=== PATIENT | female | born 2000 | race Caucasian/White ===

== ENCOUNTER 2025-02-27 18:43 | Inpatient (IN) ==
[2025-02-27] MEDS ORDERED: CALCIUM CARBONATE 500 MG CHEWABLE TAB PO PRN (21:05)
[2025-02-27] MEDS ORDERED: LIDOCAINE 1% LOCAL 20 ML VIAL INFIL PRN (21:05)
[2025-02-27] MEDS ORDERED: ACETAMINOPHEN 325 MG TAB PO PRN (21:05)
[2025-02-27] MEDS ORDERED: PENICILLIN GK 6 MU in DEXTROSE 5% 250 ML IV STA (21:05)
[2025-02-27 21:58] LABS: Appearance Urine Clear (Clear); Glucose Urine UA Negative (Negative)
[2025-02-27 22:18] LABS: Protein Creatinine Ratio Urine 0.2 (0-0.2); Total Protein Urine Random 9.5 mg/dl (0-11.9)
[2025-02-27 22:34] LABS: Amphetamines+Metham, Urine Neg (Neg); MDMA (Ecstacy), Urine Neg (Neg); Marijuana, Urine Pos (Neg)
[2025-02-27 22:36] LABS: Hematocrit (blood only) 36.0 % (37.0-47.0); Hemoglobin 12.5 g/dl (12.0-16.0); Mean Corpuscular Hemoglobin 31.6 pg (25.0-34.0); Mean Corpuscular Volume 90.9 fL (80.0-100.0); Platelet Count 185 K/uL (130-400); RDW Standard Deviation 40.9 fL (36.4-46.3); Red Blood Count 3.96 M/uL (4.20-5.40); White Blood Count 9.35 K/ul (4.8-10.8)
--- NOTE | 2025-02-27 22:38 | History & Physical Report ---
Date of Service February 27, 2025 Assessment & Plan (1) Pre-eclampsia during in third trimester, antepartum: Plan: induction of labor with Cervidil for cervical ripening (2) Elevated liver enzymes: History of Present Illness Chief Complaint: induction of labor for pre-eclampsia Primary Care Provider: Katina Pinto MD 24 F [id number] admitted at 37.2 weeks after signing out AMA yesterday and returning to the office today. She was scheduled for IOL for this upcoming Sunday but she just showed up unannounced to L[facility]D [facility]. GBS is pending. Allergies Allergy/AdvReac Type Severity Reaction Status Date / Time dog dander Allergy Intermediate ITCHY Verified 02/27/25 19:08 EYES, SNEEZING Rabbit Allergy Intermediate ITCHY Verified 02/27/25 19:08 EYES, SNEEZING Home Medications Medication Instructions Recorded Confirmed Type albuterol sulfate 90 mcg/actuation 1 puff inhalation Q6H PRN Wheezing 10/27/18 02/27/25 History aerosol inhaler ferrous sulfate 325 mg (65 mg 325 mg PO BID 03/07/24 02/27/25 History iron) tablet (FeroSul) vit no.95-ferrous 1 tab PO DAILY 03/07/24 02/27/25 History fumarate 28 mg-folic acid 800 mcg tablet () aspirin 81 mg chewable tablet 81 mg PO DAILY 02/26/25 02/27/25 History Patient History Medical History Anxiety and depression Asthma Suicidal ideation Surgical History History of tonsillectomy History of adenoidectomy Social History Smoking Status: Current every day smoker Tobacco Type: E-cigarettes / Vaping Second Hand Exposure: No; Do You Dip or Chew Tobacco: No; Tobacco Cessation Education Requested by Patient: No Hx Alcohol Use: No Hx Substance Use: Yes Last Used Substance: Days (ago) Last Used Substance Other:: yesterday 02/26/25. Pt has medical card. 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 Beliefs That Will Affect Care: None marital status: Single Current Living Situation: Significant Other Current Living Situation Comment: Lives with FOB and daughther Other Information That Helps Us Care for You: No Feels Safe at Home: Yes Safety Concerns: Feels Safe At This Time Assistive Devices: None OB History x1 last year with PPH COLD MEAT CHEF History neg Review of Systems All systems reviewed & are unremarkable except as noted in HPI & below Physical Exam Constitutional: WD/WN, vitals as above Eyes: PERRL, conjunctivae normal, anicteric sclerae Respiratory: normal respiratory effort Cardiovascular: Rate/Rhythm: regular rate and regular rhythm Gastrointestinal (Abdomen): Inspection/Auscultation: abdomen normal to inspection Musculoskeletal: Extremities: extremities normal to inspection no edema Skin: no rashes, warm and dry Neurologic: patellar DTR's 2+ bilat, sensation intact Psychiatric: A+Ox3, euthymic affect Genitourinary: Manual OB Exam: + cervical dilation fingertip, + cervical effacement 50% and + station high OB Exam Monitor Tracing: + external FHT monitor used, + external uterine monitor used, + category I and + normal FHT variability Cervidil 10 mg placed vaginally Results & Data Vital Signs (Past 12 Hours) Vital Signs Temp Pulse Resp BP O2 Del Method 02/27/25 22:31 85 148/100 H 02/27/25 19:20 36.8 C 91 H 18 128/91 02/27/25 19:20 36.8 C 18 Room Air Code Status & VTE Plan VTE Prophylaxis Plan VTE Prophylaxis will be ordered: No Monitoring External Monitor Cat 1
[2025-02-27] MEDS: DINOPROSTONE 10 MG INSERT PV ONE (22:45)
[2025-02-27 22:57] LABS: Alanine Aminotransferase 440.0 U/L (7-52); Albumin Globulin Ratio 1.2 (0.9-2); Alkaline Phosphatase 211.0 U/L (34-104); Anion Gap 11.0 (3-11); Bilirubin,Total 1.1 mg/dl (0.2-1.0); Blood Urea Nitrogen 6.0 mg/dl (6-23); Calcium 8.8 mg/dl (8.6-10.3); Carbon Dioxide 19.0 mmol/L (21-32); Chloride 104.0 mmol/L (98-107); Creatinine Clr Calc Pharmacy 163.8 ml/min; Globulin 2.9 gm/dl (2.5-4.0); Glucose 71.0 mg/dl (70-99(Fasting)); Potassium 3.6 mmol/L (3.5-5.1); Sodium 134.0 mmol/L (136-145); Total Protein 6.4 gm/dl (6.0-8.3); Uric Acid 5.7 mg/dl (2.6-7.2)
[2025-02-28] MEDS ORDERED: PENICILLIN GK 3 MU in DEXTROSE 5% 100 ML IV PRN (00:05)
[2025-02-28] MEDS: LABETALOL HCL 100 MG TAB PO SCH (08:49)
--- NOTE | 2025-02-28 09:13 | Obstetrical Progress Note ---
Date of Service February 28, 2025 Assessment & Plan Admission and Anticipated Discharge Date Admission Date: February 27, 2025 Subjective Patient seen and examined. I know her from February 26 morning when she presented with severe range elevated blood pressures and elevated liver enzymes, recommended to stay for induction of labor for preeclampsia with severe features. She declined and signed out AMA. She went to office yesterday when repeat labs were done and her AST ALT were going up compared to the day before: Latest Ref Rng 02/27/2025 BUN 6 - 20 mg/dL 7 CREATININE 0.5 - 1.0 mg/dL 0.6 EGFR >=60 mL/min >90 SODIUM 135 - 146 mmol/L 136 POTASSIUM 3.5 - 5.1 mmol/L 4.3 CHLORIDE 98 - 107 mmol/L 100 CO2 22 - 32 mmol/L 19 (L) ANION GAP 7 - 15 mmol/L 17 (H) GLUCOSE 70 - 120 mg/dL 62 (L) Albumin 3.8 - 5.0 g/dL 3.8 AST 10 - 35 U/L 205 (H) Alkaline Phosphatase 35 - 130 U/L 218 (H) Bilirubin, Total <=1.2 mg/dL 0.9 CALCIUM 8.4 - 10.2 mg/dL 9.2 Protein 6.0 - 8.3 g/dL 6.2 ALT 10 - 35 U/L 352 (H) Color, Urine Light Yellow, Yellow Dark Yellow ! Clarity, Urine Clear Slightly Cloudy ! Glucose, Urine Negative mg/dL Negative Bilirubin, Urine Negative Moderate ! Ketone, Urine Negative mg/dL 80 ! Specific [place], Urine 1.003 - 1.030 1.025 Blood, Urine Negative Large ! pH, Urine 5.0, 5.5, 6.0, 6.5, 7.0, 7.5 units 6.5 Protein, Urine Negative mg/dL 100 ! Urobilinogen, Urine 0.2, 1.0 mg/dL 1.0 Nitrite, Urine Negative Negative Esterase, Urine Negative Trace ! WBC 4.00 - 10.80 K/uL 9.46 RBC 3.85 - 5.15 M/uL 4.07 HGB 12.0 - 15.3 g/dL 13.1 HCT 36.0 - 45.2 % 38.1 MCV 81.5 - 97.5 fL 93.6 MCH 27.0 - 34.0 pg 32.2 MCHC 32.0 - 36.0 g/dL 34.4 RDW 11.5 - 15.5 % 12.4 PLT 140 - 400 K/uL 190 MPV 6.6 - 11.1 fL 11.8 Protein/ Creatinine Ratio, Urine <150 mg/g 190 (H) Protein, Random Urine mg/dL 27 Creatinine, Random Urine mg/dL 142 She then presented to labor and delivery last night for induction of labor. She has no complaints. Denies headaches, change in her vision, nausea vomiting, epigastric or right upper quadrant pain. she denies swelling of extremities. Her blood pressures were stable last night but started to increase this morning. Her repeat liver enzymes were significantly elevated compared to before. She was admitted by Dr. Lewis who placed Cervidil for cervical ripening. She has a history of preeclampsia with severe features last February when she had her first baby. Her baby's birthday is tomorrow. She was on IV magnesium for seizure prophylaxis for her liver enzymes were at 200s, getting up. Repeat labs showed normal levels of ALT AST after delivery. I will collect her GBS 2 days ago and it is negative. She is aware of all the findings and we discussed the plan to start p.o. labetalol for her blood pressures, IV magnesium for seizure prophylaxis and AROM when able. Continue monitor closely, All questions were answered. Results & Data Vital Signs (Past 12 Hours) Vital Signs Temp Pulse Resp BP 02/28/25 08:49 83 143/99 H 02/28/25 07:55 74 154/97 H 02/28/25 07:40 74 154/94 H 02/28/25 07:23 36.6 C 20 02/28/25 07:23 69 139/101 H 02/28/25 05:43 76 117/75 02/28/25 03:06 72 130/84 02/28/25 02:50 16 02/28/25 02:50 36.5 C 16 02/28/25 00:44 71 123/80 02/27/25 23:45 82 128/86 02/27/25 22:31 36.8 C 85 18 148/100 H
[2025-02-28] MEDS ORDERED: ALBUTEROL HFA 8 GM INHALER INH PRN (09:21)
[2025-02-28 09:24] LABS: Hematocrit (blood only) 36.1 % (37.0-47.0); Hemoglobin 12.5 g/dl (12.0-16.0); Immature Granulocytes # (auto) 0.01 K/uL (0.01-0.20); Immature Granulocytes % (auto) 0.2 %; Mean Corpuscular Hemoglobin 31.6 pg (25.0-34.0); Mean Corpuscular Volume 91.4 fL (80.0-100.0); Platelet Count 166 K/uL (130-400); RDW Standard Deviation 41.2 fL (36.4-46.3); Red Blood Count 3.95 M/uL (4.20-5.40); White Blood Count 6.11 K/ul (4.8-10.8)
[2025-02-28] MEDS: PRENATAL VITAMIN 1 TAB PO SCH (09:36)
[2025-02-28 09:42] LABS: Alanine Aminotransferase 427.0 U/L (7-52); Albumin Globulin Ratio 1.5 (0.9-2); Alkaline Phosphatase 199.0 U/L (34-104); Anion Gap 8.0 (3-11); Bilirubin,Total 1.1 mg/dl (0.2-1.0); Blood Urea Nitrogen 6.0 mg/dl (6-23); Calcium 8.6 mg/dl (8.6-10.3); Carbon Dioxide 22.0 mmol/L (21-32); Chloride 105.0 mmol/L (98-107); Creatinine Clr Calc Pharmacy 160.7 ml/min; Globulin 2.4 gm/dl (2.5-4.0); Glucose 146.0 mg/dl (70-99(Fasting)); Potassium 3.5 mmol/L (3.5-5.1); Sodium 135.0 mmol/L (136-145); Total Protein 5.9 gm/dl (6.0-8.3)
[2025-02-28] MEDS: LACTATED RINGER'S 1,000 ML IV PRN (09:43)
[2025-02-28] MEDS: MAGNESIUM SULFATE / WTR 40 GM/1,000 ML BAG IV SCH (09:44)
[2025-02-28] MEDS: MAG SULFATE 4GM BOLUS FROM BAG IV ONE (09:45)
[2025-02-28] MEDS: MAG SULFATE 50% 1GM/2ML 10ML VIAL IV ONE (09:45)
[2025-02-28 09:53] LABS: INR 1.0 (0.9-1.1); Partial Thromboplastin Time 28 Seconds (21-31); Prothrombin Time 10.8 Seconds (9.0-12.0)
--- NOTE | 2025-02-28 10:25 | Obstetrical Progress Note ---
Date of Service February 28, 2025 Assessment & Plan Admission and Anticipated Discharge Date Admission Date: February 27, 2025 Subjective Magnesium bolus was given, patient got nauseous VSS Afebrile Labs are back and LFT's has not got more higher than last night VE: Cervidil is removed Cervix: 4cm/ 50%/-2 Continue to monitor closely Will start Oxytocin Lab Results 02/27/25 02/27/25 02/28/25 Range/Units 22:22 Unknown 09:09 WBC 9.35 6.11 (4.8-10.8) K/ul RBC 3.96 L 3.95 L (4.20-5.40) M/uL Hgb 12.5 12.5 (12.0-16.0) g/dl Hct 36.0 L 36.1 L (37.0-47.0) % MCV 90.9 91.4 (80.0-100.0) fL MCH 31.6 31.6 (25.0-34.0) pg MCHC 34.7 34.6 (32.0-36.0) g/dL RDW Std Deviation 40.9 41.2 (36.4-46.3) fL RDW Coeff of Tammie 12.5 12.6 (11.5-14.5) % Plt Count 185 166 (130-400) K/uL MPV 11.6 11.4 (9.4-12.4) fL Immature Gran % (Auto) 0.2 % Neut % (Auto) 74.6 % Lymph % (Auto) 20.5 % [place] % (Auto) 2.9 % Eos % (Auto) 1.1 % Baso % (Auto) 0.7 % Neut # (Auto) 4.56 (1.40-6.50) K/uL Lymph # (Auto) 1.25 (1.20-3.40) K/uL [place] # (Auto) 0.18 (0.11-0.59) K/uL Eos # (Auto) 0.07 (0.00-0.50) K/uL Baso # (Auto) 0.04 (0.00-0.20) K/uL Immature Gran # (Auto) 0.01 (0.01-0.20) K/uL PT 10.8 (9.0-12.0) Seconds INR 1.0 (0.9-1.1) APTT 28 (21-31) Seconds PTT Ratio 1.0 Sodium 134 L 135 L (136-145) mmol/L Potassium 3.6 3.5 (3.5-5.1) mmol/L Chloride 104 105 (98-107) mmol/L Carbon Dioxide 19 L 22 (21-32) mmol/L Anion Gap 11 8 (3-11) BUN 6 6 (6-23) mg/dl Creatinine 0.52 L 0.53 L (0.6-1.2) mg/dl Est Cr Clr Drug Dosing 163.8 160.7 ml/min eGFR 133.80 133.19 BUN/Creatinine Ratio 11.5 11.3 (10-20) Glucose 71 146 H (70-99(Fasting)) mg/dl Uric Acid 5.7 (2.6-7.2) mg/dl Calcium 8.8 8.6 (8.6-10.3) mg/dl Total Bilirubin 1.1 H D 1.1 H (0.2-1.0) mg/dl Direct Bilirubin 0.4 H (0-0.2) mg/dl AST 255 H 216 H (13-39) U/L ALT 440 H 427 H (7-52) U/L Alkaline Phosphatase 211 H 199 H (34-104) U/L Lactate Dehydrogenase 275 H (86-244) U/L Total Protein 6.4 5.9 L (6.0-8.3) gm/dl Albumin 3.5 3.5 (3.4-5.0) gm/dl Globulin 2.9 2.4 L (2.5-4.0) gm/dl Albumin/Globulin Ratio 1.2 1.5 (0.9-2) Urine Color Yellow Urine Appearance Clear (Clear) Urine pH 6.5 (4.5-7.5) Ur Specific [place] 1.007 (1.000-1.030) Urine Protein Negative (Negative) Urine Glucose (UA) Negative (Negative) Urine Ketones 3+ H (Negative) Urine Blood 1+ H (Negative) Urine Nitrite Negative (Negative) Urine Bilirubin Negative (Negative) Urine Urobilinogen Negative (Negative) Ur Leukocyte Esterase Trace H (Negative) Ur Random Creatinine 40.9 mg/dl U Random Total Protein 9.5 (0-11.9) mg/dl Protein/Creatinin Ratio 0.2 (0-0.2) Urine Opiates Screen Neg (Neg) Ur Methadone, Qual Neg (Neg) Urine Fentanyl Screen Neg (Neg) Urine Barbiturates Neg (Neg) Ur Phencyclidine (PCP) Neg (Neg) U Amphetamin/Meth Scrn Neg (Neg) MDMA (Ecstasy) Screen Neg (Neg) U Benzodiazepines Scrn Neg (Neg) Ur Cocaine Metabolite Neg (Neg) U Marijuana (THC) Screen Pos H (Neg) Treponema pallidum Ab Negative (Negative) Blood Type O Positive Antibody Screen NEGATIVE Results & Data Vital Signs (Past 12 Hours) Vital Signs Temp Pulse Resp BP 02/28/25 10:18 86 129/83 02/28/25 09:48 92 H 141/96 H 02/28/25 09:20 89 134/93 02/28/25 08:49 83 143/99 H 02/28/25 07:55 74 154/97 H 02/28/25 07:40 74 154/94 H 02/28/25 07:23 36.6 C 20 02/28/25 07:23 69 139/101 H 02/28/25 05:43 76 117/75 02/28/25 03:06 72 130/84 02/28/25 02:50 16 02/28/25 02:50 36.5 C 16 02/28/25 00:44 71 123/80 02/27/25 23:45 82 128/86 02/27/25 22:31 36.8 C 85 18 148/100 H
[2025-02-28] MEDS: OXYTOCIN 30 UNITS/NSS 30 UNITS/500 ML BAG IV PRN ×2 (10:27→15:54)
[2025-02-28 10:33] LABS: Fibrinogen 433 mg/dl (184-400)
[2025-02-28] MEDS ORDERED: fentANYL 2 MCG/ML BUPIVacaine 0.125%-NSS 100ML BAG EPI PRN (12:47)
[2025-02-28] MEDS ORDERED: NALOXONE HCL 0.4 MG/1 ML VIAL/CARP IV PRN (12:47)
[2025-02-28] MEDS ORDERED: SODIUM CHLORIDE 0.9% PF INJ 10 ML VIAL EPI PRN (12:47)
[2025-02-28] MEDS ORDERED: diphenhydrAMINE 50 MG/ML VIAL IV PRN (12:47)
[2025-02-28] MEDS ORDERED: LIDOCAINE 2% MPF LOCAL 5 ML VIAL EPI PRN (12:47)
[2025-02-28] MEDS ORDERED: ROPIVACAINE 0.5% PF 5 MG/ML 20 ML VIAL EPI PRN (12:47)
[2025-02-28] MEDS ORDERED: NALOXONE HCL 1 MG in SODIUM CHLORIDE 0.9% 1,000 ML IV PRN (12:47)
[2025-02-28] MEDS ORDERED: BUPIVACAINE 0.25% PF 30 ML VIAL EPI PRN (12:47)
[2025-02-28] MEDS ORDERED: NALBUPHINE HCL INJ 10 MG/ML AMP IV PRN (12:47)
--- NOTE | 2025-02-28 12:47 | Anesthesiology Consultation ---
Date of Service February 28, 2025 Assessment & Plan Chart Review Chart Review: Acceptable Risk for Labor Epidural Consults Requested none History Height/Weight Height: 5 ft 4 in Weight: 72.121 kg Allergies Allergy/AdvReac Type Severity Reaction Status Date / Time dog dander Allergy Intermediate ITCHY Verified 02/27/25 19:08 EYES, SNEEZING Rabbit Allergy Intermediate ITCHY Verified 02/27/25 19:08 EYES, SNEEZING Medications Home Medications Medication Instructions Recorded Confirmed Last Taken albuterol sulfate 90 mcg/actuation 1 puff inhalation Q6H PRN Wheezing 10/27/18 02/27/25 02/27/25 aerosol inhaler ferrous sulfate 325 mg (65 mg 325 mg PO BID 03/07/24 02/27/25 02/27/25 iron) tablet (FeroSul) vit no.95-ferrous 1 tab PO DAILY 03/07/24 02/27/25 02/27/25 fumarate 28 mg-folic acid 800 mcg tablet () aspirin 81 mg chewable tablet 81 mg PO DAILY 02/26/25 02/27/25 02/27/25 Active Medications Generic Name Dose Route Start Last Admin Trade Name Freq PRN Reason Stop Dose Admin Lactated Ringer's 1,000 mls @ 125 mls/hr 02/27/25 21:05 02/28/25 12:28 Lr IV 03/01/25 21:04 999 mls/hr .Q8H PRN Infusion L&D Protocol Protocol Magnesium Sulfate 40 gm in 1,000 mls @ 50 mls/hr 02/28/25 09:15 02/28/25 10:17 Magnesium Sulfate / Wtr IV 03/30/25 09:14 50 mls/hr .Q20H MICHAEL Infusion Oxytocin 30 units in 500 mls @ 4 mls/hr 02/28/25 09:15 02/28/25 10:57 Pitocin 30 Units/Nss IV 03/02/25 09:14 0.24 units/hr .Q24H PRN 4 mls/hr Labor Induction/Augmentation Titration Protocol 0.24 UNITS/HR Labetalol HCl 100 mg 02/28/25 08:40 02/28/25 08:49 Labetalol Hcl 100 Mg Tab PO 03/30/25 08:39 100 mg Q8 MICHAEL Administration Prenat Multivit/Staffing Clerk/Iron/Folic Ac 1 tab 02/28/25 09:30 02/28/25 09:36 Vitamin 1 Tab PO 03/30/25 09:29 Not Given DAILY MICHAEL Past Medical History Medical History Anxiety and depression Asthma Suicidal ideation Past Surgical History Surgical History History of tonsillectomy History of adenoidectomy Social History Smoking Status: Current every day smoker Do You Dip or Chew Tobacco: No Hx Alcohol Use: No Hx Substance Use: Yes substance use type: marijuana Substance Use Type Other:: used yesterday- medical card Last Used Substance: Days (ago) Last Used Substance Other:: yesterday 02/26/25. Pt has medical card. Copy placed in chart Physical Exam Vital Signs Last Vital Signs Temp 36.6 C 02/28/25 10:30 Pulse 71 02/28/25 12:45 Resp 18 02/28/25 11:30 BP 150/97 H 02/28/25 11:50 Pulse Ox 100 02/28/25 12:45 O2 Del Method Room Air 02/27/25 19:20 Testing Laboratory Results 02/28/25 09:09 02/28/25 09:09 PT 10.8 Seconds (9.0-12.0) 02/28/25 09:09 INR 1.0 (0.9-1.1) 02/28/25 09:09 APTT 28 Seconds (21-31) 02/28/25 09:09 Urine Color Yellow 02/27/25 Unknown Urine Appearance Clear (Clear) 02/27/25 Unknown Urine pH 6.5 (4.5-7.5) 02/27/25 Unknown Ur Specific [place] 1.007 (1.000-1.030) 02/27/25 Unknown Urine Protein Negative (Negative) 02/27/25 Unknown Urine Glucose (UA) Negative (Negative) 02/27/25 Unknown Urine Ketones 3+ (Negative) H 02/27/25 Unknown Urine Nitrite Negative (Negative) 02/27/25 Unknown Ur Leukocyte Esterase Trace (Negative) H 02/27/25 Unknown Blood Type O Positive 02/27/25 22:22 Antibody Screen NEGATIVE 02/27/25 22:22
[2025-02-28] MEDS: fentANYL 2 MCG/ML BUPIVacaine 0.125%-NSS 100ML BAG ONE (13:07)
[2025-02-28] MEDS: LIDOCAINE 2%/EPINEPHRINE 1:200,000 20 ML PF ONE (13:12)
[2025-02-28] MEDS: SODIUM CHLORIDE 0.9% PF INJ 10 ML VIAL ONE (13:13)
[2025-02-28] MEDS: BUPIVACAINE 0.25% PF 30 ML VIAL ONE (13:13)
--- NOTE | 2025-02-28 13:43 | Obstetrical Progress Note ---
Date of Service February 28, 2025 Assessment & Plan Admission and Anticipated Discharge Date Admission Date: February 27, 2025 Subjective Patient received epidural, comfortable now, Denies headaches, change in her vision, nausea vomiting, chest pain, shortness of breath, dizziness nor sleepiness with IV magnesium, Vaginal exam 5 cm dilated, 70% effaced, -2, with bulging bag, AROM and, abundant clear fluid was obtained, heart rate category 1, repeat labs with slightly improved ALT and AST, still normal platelets and creatinine, coags within normal limits. Continue to monitor closely. Lab Results 02/27/25 02/27/25 02/28/25 Range/Units 22:22 Unknown 09:09 WBC 9.35 6.11 (4.8-10.8) K/ul RBC 3.96 L 3.95 L (4.20-5.40) M/uL Hgb 12.5 12.5 (12.0-16.0) g/dl Hct 36.0 L 36.1 L (37.0-47.0) % MCV 90.9 91.4 (80.0-100.0) fL MCH 31.6 31.6 (25.0-34.0) pg MCHC 34.7 34.6 (32.0-36.0) g/dL RDW Std Deviation 40.9 41.2 (36.4-46.3) fL RDW Coeff of Tammie 12.5 12.6 (11.5-14.5) % Plt Count 185 166 (130-400) K/uL MPV 11.6 11.4 (9.4-12.4) fL Immature Gran % (Auto) 0.2 % Neut % (Auto) 74.6 % Lymph % (Auto) 20.5 % [place] % (Auto) 2.9 % Eos % (Auto) 1.1 % Baso % (Auto) 0.7 % Neut # (Auto) 4.56 (1.40-6.50) K/uL Lymph # (Auto) 1.25 (1.20-3.40) K/uL [place] # (Auto) 0.18 (0.11-0.59) K/uL Eos # (Auto) 0.07 (0.00-0.50) K/uL Baso # (Auto) 0.04 (0.00-0.20) K/uL Immature Gran # (Auto) 0.01 (0.01-0.20) K/uL PT 10.8 (9.0-12.0) Seconds INR 1.0 (0.9-1.1) APTT 28 (21-31) Seconds PTT Ratio 1.0 Fibrinogen 433 H (184-400) mg/dl Sodium 134 L 135 L (136-145) mmol/L Potassium 3.6 3.5 (3.5-5.1) mmol/L Chloride 104 105 (98-107) mmol/L Carbon Dioxide 19 L 22 (21-32) mmol/L Anion Gap 11 8 (3-11) BUN 6 6 (6-23) mg/dl Creatinine 0.52 L 0.53 L (0.6-1.2) mg/dl Est Cr Clr Drug Dosing 163.8 160.7 ml/min eGFR 133.80 133.19 BUN/Creatinine Ratio 11.5 11.3 (10-20) Glucose 71 146 H (70-99(Fasting)) mg/dl Uric Acid 5.7 (2.6-7.2) mg/dl Calcium 8.8 8.6 (8.6-10.3) mg/dl Total Bilirubin 1.1 H D 1.1 H (0.2-1.0) mg/dl Direct Bilirubin 0.4 H (0-0.2) mg/dl AST 255 H 216 H (13-39) U/L ALT 440 H 427 H (7-52) U/L Alkaline Phosphatase 211 H 199 H (34-104) U/L Lactate Dehydrogenase 275 H (86-244) U/L Total Protein 6.4 5.9 L (6.0-8.3) gm/dl Albumin 3.5 3.5 (3.4-5.0) gm/dl Globulin 2.9 2.4 L (2.5-4.0) gm/dl Albumin/Globulin Ratio 1.2 1.5 (0.9-2) Urine Color Yellow Urine Appearance Clear (Clear) Urine pH 6.5 (4.5-7.5) Ur Specific [place] 1.007 (1.000-1.030) Urine Protein Negative (Negative) Urine Glucose (UA) Negative (Negative) Urine Ketones 3+ H (Negative) Urine Blood 1+ H (Negative) Urine Nitrite Negative (Negative) Urine Bilirubin Negative (Negative) Urine Urobilinogen Negative (Negative) Ur Leukocyte Esterase Trace H (Negative) Ur Random Creatinine 40.9 mg/dl U Random Total Protein 9.5 (0-11.9) mg/dl Protein/Creatinin Ratio 0.2 (0-0.2) Urine Opiates Screen Neg (Neg) Ur Methadone, Qual Neg (Neg) Urine Fentanyl Screen Neg (Neg) Urine Barbiturates Neg (Neg) Ur Phencyclidine (PCP) Neg (Neg) U Amphetamin/Meth Scrn Neg (Neg) MDMA (Ecstasy) Screen Neg (Neg) U Benzodiazepines Scrn Neg (Neg) Ur Cocaine Metabolite Neg (Neg) U Marijuana (THC) Screen Pos H (Neg) Treponema pallidum Ab Negative (Negative) Blood Type O Positive Antibody Screen NEGATIVE Results & Data Vital Signs (Past 12 Hours) Vital Signs Temp Pulse Resp BP Pulse Ox 02/28/25 13:35 91 H 100 02/28/25 13:34 97 H 139/93 02/28/25 13:31 79 162/105 H 02/28/25 13:30 77 99 02/28/25 13:25 76 100 02/28/25 13:24 79 141/90 H 02/28/25 13:22 85 178/117 H 02/28/25 13:20 88 97 02/28/25 13:19 81 138/101 H 02/28/25 13:17 75 146/102 H 02/28/25 13:15 77 141/98 H 100 02/28/25 13:13 77 143/95 H 02/28/25 13:11 80 150/103 H 02/28/25 13:10 36.6 C 83 20 100 02/28/25 13:09 75 157/106 H 02/28/25 13:08 74 20 155/99 H 02/28/25 13:05 82 139/87 100 02/28/25 13:00 79 100 02/28/25 12:55 78 100 02/28/25 12:50 75 100 02/28/25 12:45 71 100 02/28/25 12:40 75 100 02/28/25 12:35 81 100 02/28/25 12:30 20 02/28/25 12:30 74 100 02/28/25 11:50 81 150/97 H 02/28/25 11:30 18 02/28/25 11:30 18 02/28/25 11:19 82 151/95 H 02/28/25 10:50 91 H 165/104 H 02/28/25 10:30 20 02/28/25 10:30 36.6 C 20 02/28/25 10:18 86 129/83 02/28/25 09:48 92 H 141/96 H 02/28/25 09:20 89 134/93 02/28/25 08:49 83 143/99 H 02/28/25 07:55 74 154/97 H 02/28/25 07:40 74 154/94 H 02/28/25 07:23 36.6 C 20 02/28/25 07:23 69 139/101 H 02/28/25 05:43 76 117/75 02/28/25 03:06 72 130/84 02/28/25 02:50 16 02/28/25 02:50 36.5 C 16
[2025-02-28] MEDS: FAMOTIDINE 20 MG TAB PO SCH (14:20)
[2025-02-28] MEDS: SODIUM CHLORIDE 0.9% PF INJ 10 ML VIAL EPI STA (15:28)
[2025-02-28] MEDS: BUPIVACAINE 0.25% PF 30 ML VIAL EPI STA (15:28)
[2025-02-28] MEDS: LIDOCAINE 2%/EPINEPHRINE 1:200,000 20 ML PF EPI STA (15:28)
[2025-02-28] MEDS ORDERED: HYDROCORTISONE ACETATE 25 MG SUPP PR PRN (15:35)
[2025-02-28] MEDS ORDERED: ACETAMINOPHEN 325 MG TAB PO PRN (15:35)
[2025-02-28] MEDS ORDERED: OXYTOCIN 30 UNITS/NSS 30 UNITS/500 ML BAG IV PRN (15:35)
--- NOTE | 2025-02-28 15:47 | Delivery Summary ---
Vaginal Delivery Summary Date of Service February 28, 2025 Vaginal Delivery Summary Patient was found to be fully dilated and desires to push. She pushed for about 10 min and delivered the head and then shoulders with minimal traction at 15:17. The baby was handed off to the mother. The cord was clampedx2 and cut at 1 minute. The vagina and perineum were checked and found to have a small 1st degree perineal laceration. Rectal exam was done and noted good sphincter tone. Cytotec was placed for h/o hemorrhage. It was repaired with 2/0 vicryl and skin on subcuticular fashion. The placenta was delivered spontaneously as intact and complete. The uterus was explored and found to be empty. QBL 224 was ml. The fundus was firm The baby was a viable female , Apgars 8/9, the weight is pending The mother and the baby tolerated the procedure well. No complications happened and I was present during whole procedure.
[2025-02-28] MEDS: DIPHTHER/TETAN/PERTUS Vaccine (Tdap, Adol/Adult) 0.5mL IM ONE (16:02)
[2025-02-28] MEDS: IBUPROFEN 600 MG TAB PO PRN (17:26)
--- NOTE | 2025-02-28 17:32 | Anesthesia Procedure Note ---
Date of Service February 28, 2025 Anesthesia Post Epidural Note Vital Signs Vital Signs: Temp Pulse Resp BP Pulse Ox O2 Del Method 36.6 C 85 20 152/101 H 86 L Room Air 02/28/25 13:10 02/28/25 17:29 02/28/25 16:35 02/28/25 17:19 02/28/25 17:29 02/27/25 19:20 Notes Mental Status: alert / awake / arousable and participated in evaluation Nausea / Vomiting: adequately controlled Pain: adequately controlled Airway Patency, RR, SpO2: stable & adequate BP & HR: stable & adequate Hydration State: stable & adequate Neuraxial Anesthesia: was administered and sensory block is resolving Anesthetic Complications: no major complications apparent and Pt Satisfied with anesthetic care Epidural: Removed without complications and With tip intact
[2025-02-28] MEDS: NIFEdipine EXTENDED REL 30 MG TABCR PO SCH (19:03)
[2025-02-28] MEDS: BENZOCAINE 20% SPRY 85 APPLN/85 GM CAN EXT PRN (19:44)
[2025-02-28] MEDS ORDERED: SODIUM CHLORIDE 0.9% 100 ML IV PRN (20:04)
[2025-02-28] MEDS: BUTORPHANOL TARTRATE 1 MG/ML VIAL IV ONE (20:11)
[2025-02-28 20:33] LABS: Hematocrit (blood only) 30.8 % (37.0-47.0); Hemoglobin 10.8 g/dl (12.0-16.0); Immature Granulocytes # (auto) 0.04 K/uL (0.01-0.20); Immature Granulocytes % (auto) 0.3 %; Mean Corpuscular Hemoglobin 31.6 pg (25.0-34.0); Mean Corpuscular Volume 90.1 fL (80.0-100.0); Platelet Count 177 K/uL (130-400); RDW Standard Deviation 40.5 fL (36.4-46.3); Red Blood Count 3.42 M/uL (4.20-5.40); White Blood Count 11.52 K/ul (4.8-10.8)
[2025-02-28] MEDS: OXYTOCIN 20 UNITS/LR 1,002 ML IV SCH (20:33)
[2025-02-28 20:51] LABS: Alanine Aminotransferase 460.0 U/L (7-52); Albumin Globulin Ratio 1.2 (0.9-2); Alkaline Phosphatase 169.0 U/L (34-104); Anion Gap 8.0 (3-11); Bilirubin,Total 0.9 mg/dl (0.2-1.0); Blood Urea Nitrogen 4.0 mg/dl (6-23); Calcium 7.0 mg/dl (8.6-10.3); Carbon Dioxide 19.0 mmol/L (21-32); Chloride 104.0 mmol/L (98-107); Creatinine Clr Calc Pharmacy 198.1 ml/min; Globulin 2.4 gm/dl (2.5-4.0); Glucose 125.0 mg/dl (70-99(Fasting)); Potassium 3.6 mmol/L (3.5-5.1); Sodium 131.0 mmol/L (136-145); Total Protein 5.3 gm/dl (6.0-8.3)
--- NOTE | 2025-02-28 20:52 | Obstetrical Progress Note ---
Date of Service February 28, 2025 Assessment & Plan Admission and Anticipated Discharge Date Admission Date: February 27, 2025 Subjective I was called that patient passed large clots, QBL more than 500 meeting criteria for hemorrhage. Vital signs stable afebrile, Patient feels well no complaints other than being sleepy and mildly dizzy from magnesium sulfate. No chest pain shortness of breath, headaches change in her vision, abdominal pain. Third bag of IV oxytocin running at 999 rate. Patient was under regular bed it was switched to an labor bed for exam with speculum. Procedure: The patient was placed in dorsolithotomy position, prepared and draped in usual sterile fashion. Manual exam was done by myself fundus was firm, small about 50 mL of clot was removed from uterus. Speculum was placed in the patient's vagina cervix was visualized and held with ring forceps. There was oozing spots on the anterior lip and at 3:00 positions. Those were repaired with 2-0 Vicryl with figure of 8 stitches. And then posterior leaf was visualized to be using as well. It was also repaired with 2-0 Vicryl with [id number] stitches. It was hemostatic uterus was firm all the time. Total QBL was 1190 including blood loss during delivery and . Until now. Attempt Estela device but uterus was firm unable to place the Lana into the uterine cavity. It was removed. Patient was given IV Stadol for pain control. She tolerated the procedure well. Stat labs were done 2 units of packed red blood cells were typed and crossed ready to be given if needed. Repeat H&H is stable and other labs are pending. Continue to monitor closely. Results & Data Vital Signs (Past 12 Hours) Vital Signs Temp Pulse Resp BP Pulse Ox O2 Del Method 02/28/25 20:45 99 02/28/25 20:45 86 02/28/25 20:40 99 02/28/25 20:40 84 02/28/25 20:35 98 02/28/25 20:35 75 02/28/25 20:34 75 02/28/25 20:34 136/95 02/28/25 20:30 98 02/28/25 20:30 81 02/28/25 20:25 99 02/28/25 20:25 83 02/28/25 20:22 88 02/28/25 20:22 139/100 02/28/25 20:20 98 02/28/25 20:20 84 02/28/25 20:15 100 02/28/25 20:15 101 H 02/28/25 20:10 100 02/28/25 20:10 90 02/28/25 20:05 100 02/28/25 20:05 98 H 02/28/25 20:05 102 H 02/28/25 20:05 140/90 02/28/25 19:28 90 02/28/25 19:28 142/99 H 02/28/25 19:11 18 02/28/25 19:11 18 02/28/25 19:11 Room Air 02/28/25 18:30 20 02/28/25 18:28 87 132/90 02/28/25 17:49 85 140/90 02/28/25 17:35 20 02/28/25 17:34 81 164/103 H 02/28/25 17:29 85 86 L 02/28/25 17:25 77 99 02/28/25 17:21 74 85 L 02/28/25 17:20 72 99 02/28/25 17:19 69 152/101 H 02/28/25 17:15 74 98 02/28/25 17:10 81 98 02/28/25 17:05 20 02/28/25 17:05 83 98 02/28/25 17:04 81 131/87 02/28/25 17:00 36.7 C 02/28/25 17:00 88 95 02/28/25 16:55 81 99 02/28/25 16:50 82 98 02/28/25 16:49 72 138/86 02/28/25 16:45 75 96 02/28/25 16:40 82 98 02/28/25 16:35 20 02/28/25 16:35 86 91 02/28/25 16:34 77 154/82 H 02/28/25 16:30 79 99 02/28/25 16:25 80 94 02/28/25 16:20 20 02/28/25 16:20 77 100 02/28/25 16:19 80 153/72 H 02/28/25 16:15 79 100 02/28/25 16:10 75 99 02/28/25 16:08 20 02/28/25 16:07 87 91 02/28/25 16:05 85 100 02/28/25 16:04 76 155/103 H 02/28/25 16:00 85 100 02/28/25 15:55 86 100 02/28/25 15:50 18 02/28/25 15:50 99 02/28/25 15:50 82 02/28/25 15:50 81 141/100 H 02/28/25 15:45 94 H 99 02/28/25 15:40 77 99 02/28/25 15:35 20 02/28/25 15:35 81 100 02/28/25 15:34 76 125/79 02/28/25 15:30 81 100 02/28/25 15:27 76 143/76 H 02/28/25 15:25 83 99 02/28/25 15:20 84 99 02/28/25 15:17 88 92 02/28/25 15:15 89 100 02/28/25 15:10 92 H 100 02/28/25 15:06 83 193/111 H 02/28/25 15:05 94 H 100 02/28/25 15:00 85 100 02/28/25 14:55 77 100 02/28/25 14:50 99 02/28/25 14:50 77 02/28/25 14:50 76 133/80 02/28/25 14:45 85 100 02/28/25 14:40 75 100 02/28/25 14:35 75 100 02/28/25 14:34 75 122/76 02/28/25 14:30 20 02/28/25 14:30 78 100 02/28/25 14:25 84 99 02/28/25 14:20 99 H 142/97 H 100 02/28/25 14:15 82 100 02/28/25 14:10 83 100 02/28/25 14:05 100 02/28/25 14:05 85 02/28/25 14:05 75 136/91 02/28/25 14:01 78 138/92 02/28/25 14:00 83 18 99 02/28/25 13:55 85 100 02/28/25 13:50 82 100 02/28/25 13:45 90 100 02/28/25 13:40 98 H 100 02/28/25 13:35 91 H 100 02/28/25 13:34 97 H 139/93 02/28/25 13:31 79 162/105 H 02/28/25 13:30 20 02/28/25 13:30 77 99 02/28/25 13:25 76 100 02/28/25 13:24 79 141/90 H 02/28/25 13:22 85 178/117 H 02/28/25 13:20 88 18 97 02/28/25 13:19 81 138/101 H 02/28/25 13:17 75 146/102 H 02/28/25 13:15 77 141/98 H 100 02/28/25 13:13 77 143/95 H 02/28/25 13:11 80 150/103 H 02/28/25 13:10 36.6 C 83 20 100 02/28/25 13:09 75 157/106 H 02/28/25 13:08 74 20 155/99 H 02/28/25 13:05 82 139/87 100 02/28/25 13:00 79 100 02/28/25 12:55 78 100 02/28/25 12:50 75 100 02/28/25 12:45 71 100 02/28/25 12:40 75 100 02/28/25 12:35 81 100 02/28/25 12:30 20 02/28/25 12:30 74 100 02/28/25 11:50 81 150/97 H 02/28/25 11:30 18 02/28/25 11:30 18 02/28/25 11:19 82 151/95 H 02/28/25 10:50 91 H 165/104 H 02/28/25 10:30 20 02/28/25 10:30 36.6 C 20 02/28/25 10:18 86 129/83 02/28/25 09:48 92 H 141/96 H 02/28/25 09:20 89 134/93 02/28/25 08:49 83 143/99 H
[2025-02-28 21:02] LABS: Fibrinogen 449 mg/dl (184-400)
[2025-02-28 21:04] LABS: INR 0.9 (0.9-1.1); Partial Thromboplastin Time 29 Seconds (21-31); Prothrombin Time 10.1 Seconds (9.0-12.0)
[2025-02-28] MEDS: BUTORPHANOL TARTRATE 1 MG/ML VIAL ONE (21:08)
[2025-02-28] MEDS: ONDANSETRON INJ 2 MG/ML 2 ML VIAL IV PRN (21:33)
[2025-02-28] MEDS: DOCUSATE SODIUM 100 MG CAP PO SCH (21:55)
[2025-02-28] MEDS: OXYTOCIN 20 UNITS/1002ML LR IV ONE (22:11)
[2025-02-28] MEDS ORDERED: Nursing to Pharmacy Communication SCH (23:30)
[2025-03-01 06:55] LABS: Hematocrit (blood only) 28.4 % (37.0-47.0); Hemoglobin 9.9 g/dl (12.0-16.0); Mean Corpuscular Hemoglobin 31.5 pg (25.0-34.0); Mean Corpuscular Volume 90.4 fL (80.0-100.0); Platelet Count 153 K/uL (130-400); RDW Standard Deviation 40.3 fL (36.4-46.3); Red Blood Count 3.14 M/uL (4.20-5.40); White Blood Count 9.91 K/ul (4.8-10.8)
[2025-03-01 07:19] LABS: Alanine Aminotransferase 412.0 U/L (7-52); Albumin Globulin Ratio 1.5 (0.9-2); Alkaline Phosphatase 156.0 U/L (34-104); Anion Gap 4.0 (3-11); Bilirubin,Total 0.9 mg/dl (0.2-1.0); Blood Urea Nitrogen 3.0 mg/dl (6-23); Calcium 6.9 mg/dl (8.6-10.3); Carbon Dioxide 24.0 mmol/L (21-32); Chloride 103.0 mmol/L (98-107); Creatinine Clr Calc Pharmacy 193.6 ml/min; Globulin 1.9 gm/dl (2.5-4.0); Glucose 86.0 mg/dl (70-99(Fasting)); Potassium 4.0 mmol/L (3.5-5.1); Sodium 131.0 mmol/L (136-145); Total Protein 4.8 gm/dl (6.0-8.3)
[2025-03-01] MEDS ORDERED: IRON SUCROSE 300 MG in SODIUM CHLORIDE 0.9% 250 ML IV ONE (07:29)
--- NOTE | 2025-03-01 08:11 | Obstetrical Progress Note ---
Date of Service March 01, 2025 Assessment & Plan Admission and Anticipated Discharge Date Admission Date: February 27, 2025 Subjective Patient is seen and examined. She feels well, no complaints. Ambulating without dizziness Voiding without difficulty Tolerating regular diet with out N&V Bleeding is minimal No DUGAN/ Change in vision/ fever/ chills/ CP/ SOB/ N&V/ Leg pain Breast and bottle feeding without problems Vital Signs Height Weight Body Mass Index Blood Pressure Temperature Pulse Rate Respiratory Rate 5 ft 4 in 72.121 kg 27.3 135/90 36.7 C 81 20 02/28/25 13:12 02/28/25 13:12 02/27/25 19:20 03/01/25 08:03 03/01/25 07:10 03/01/25 08:05 03/01/25 07:10 Pulse Oximetry 99 03/01/25 08:05 03/01/25 02/28/25 02/28/25 Range/Units 06:19 20:17 09:09 WBC 9.91 11.52 H 6.11 (4.8-10.8) K/ul RBC 3.14 L 3.42 L 3.95 L (4.20-5.40) M/uL Hgb 9.9 L 10.8 L 12.5 (12.0-16.0) g/dl Hct 28.4 L 30.8 L 36.1 L (37.0-47.0) % MCV 90.4 90.1 91.4 (80.0-100.0) fL MCH 31.5 31.6 31.6 (25.0-34.0) pg MCHC 34.9 35.1 34.6 (32.0-36.0) g/dL RDW Std Deviation 40.3 40.5 41.2 (36.4-46.3) fL RDW Coeff of Tammie 12.4 12.4 12.6 (11.5-14.5) % Plt Count 153 177 166 (130-400) K/uL MPV 11.5 11.0 11.4 (9.4-12.4) fL Immature Gran % (Auto) 0.3 0.2 % Neut % (Auto) 82.7 74.6 % Lymph % (Auto) 11.1 20.5 % [place] % (Auto) 5.3 2.9 % Eos % (Auto) 0.3 1.1 % Baso % (Auto) 0.3 0.7 % Neut # (Auto) 9.51 H 4.56 (1.40-6.50) K/uL Lymph # (Auto) 1.28 1.25 (1.20-3.40) K/uL [place] # (Auto) 0.61 H 0.18 (0.11-0.59) K/uL Eos # (Auto) 0.04 0.07 (0.00-0.50) K/uL Baso # (Auto) 0.04 0.04 (0.00-0.20) K/uL Immature Gran # (Auto) 0.04 0.01 (0.01-0.20) K/uL PT 10.1 10.8 (9.0-12.0) Seconds INR 0.9 1.0 (0.9-1.1) APTT 29 28 (21-31) Seconds PTT Ratio 1.1 1.0 Fibrinogen 449 H 433 H (184-400) mg/dl Sodium 131 L 131 L 135 L (136-145) mmol/L Potassium 4.0 3.6 3.5 (3.5-5.1) mmol/L Chloride 103 104 105 (98-107) mmol/L Carbon Dioxide 24 19 L 22 (21-32) mmol/L Anion Gap 4 8 8 (3-11) BUN 3 L 4 L 6 (6-23) mg/dl Creatinine 0.44 L 0.43 L 0.53 L (0.6-1.2) mg/dl Est Cr Clr Drug Dosing 193.6 198.1 160.7 ml/min eGFR 139.30 140.07 133.19 BUN/Creatinine Ratio 6.8 L 9.3 L 11.3 (10-20) Glucose 86 125 H 146 H (70-99(Fasting)) mg/dl Calcium 6.9 L 7.0 L 8.6 (8.6-10.3) mg/dl Magnesium (Sulf Ther) Pending Total Bilirubin 0.9 0.9 1.1 H (0.2-1.0) mg/dl AST 207 H 232 H 216 H (13-39) U/L ALT 412 H 460 H 427 H (7-52) U/L Alkaline Phosphatase 156 H 169 H 199 H (34-104) U/L Total Protein 4.8 L 5.3 L 5.9 L (6.0-8.3) gm/dl Albumin 2.9 L 2.9 L 3.5 (3.4-5.0) gm/dl Globulin 1.9 L 2.4 L 2.4 L (2.5-4.0) gm/dl Albumin/Globulin Ratio 1.5 1.2 1.5 (0.9-2) PE: General: Alert, orientedx3, NAD Abd: soft, NT, fundus firm, below Umbilicus Perineum intact, Lochia rubra minimal Ext; NT, no edema AP: 24 yo s/p , IOL for preeclampsia with severe features, elevated AST, ALT, s/p pp hemorrhage controlled with medications and cervical repair, on IV magnesium, ppd# 1 VSS Afebrile doing well BP's under control wit Labetalol and Procardia XL, both were held this morning H&H stable, UOP good, No s/s of magnesium toxicity Low Calcium replace with Calcium Gluconate IV IV iron Stop Magnesium after 24 hours Continue to monitor closely All questions were answered Results & Data Vital Signs (Past 12 Hours) Vital Signs Temp Pulse Resp BP Pulse Ox 03/01/25 08:03 86 135/90 03/01/25 08:00 83 97 03/01/25 07:55 79 97 03/01/25 07:50 84 99 03/01/25 07:45 86 99 03/01/25 07:40 83 98 03/01/25 07:35 83 97 03/01/25 07:30 102 H 100 03/01/25 07:25 84 98 03/01/25 07:20 80 99 03/01/25 07:15 85 96 03/01/25 07:10 36.7 C 20 03/01/25 07:10 20 03/01/25 07:10 88 100 03/01/25 07:05 91 H 99 03/01/25 07:03 86 129/87 03/01/25 07:00 84 98 03/01/25 06:55 91 H 99 03/01/25 06:50 86 99 03/01/25 06:45 88 99 03/01/25 06:40 95 H 99 03/01/25 06:35 87 99 03/01/25 06:30 94 H 96 03/01/25 06:25 92 H 99 03/01/25 06:20 88 99 03/01/25 06:15 86 98 03/01/25 06:10 84 99 03/01/25 06:05 16 03/01/25 06:05 81 99 03/01/25 06:03 81 117/82 03/01/25 06:00 80 99 03/01/25 05:55 80 100 03/01/25 05:50 87 100 03/01/25 05:45 81 100 03/01/25 05:40 74 99 03/01/25 05:35 71 100 03/01/25 05:30 77 100 03/01/25 05:25 77 100 03/01/25 05:20 78 99 03/01/25 05:15 78 100 03/01/25 05:10 16 03/01/25 05:10 83 99 03/01/25 05:05 84 99 03/01/25 05:03 79 105/64 03/01/25 05:00 84 100 03/01/25 04:55 85 100 03/01/25 04:50 80 99 03/01/25 04:45 83 99 03/01/25 04:40 85 98 03/01/25 04:35 78 98 03/01/25 04:30 89 100 03/01/25 04:25 80 98 03/01/25 04:20 80 100 03/01/25 04:15 88 100 03/01/25 04:10 92 H 100 03/01/25 04:05 16 03/01/25 04:05 81 100 03/01/25 04:03 80 102/61 03/01/25 04:00 85 99 03/01/25 03:55 95 H 99 03/01/25 03:50 94 H 100 03/01/25 03:45 82 100 03/01/25 03:40 89 100 03/01/25 03:35 79 100 03/01/25 03:30 16 03/01/25 03:30 76 100 03/01/25 03:25 79 100 03/01/25 03:22 102 H 86 L 03/01/25 03:20 108 H 100 03/01/25 03:15 16 03/01/25 03:15 36.8 C 70 16 99 03/01/25 03:10 77 97 03/01/25 03:05 73 97 03/01/25 03:03 80 121/70 03/01/25 03:00 71 98 03/01/25 02:55 75 97 03/01/25 02:50 74 97 03/01/25 02:45 74 98 03/01/25 02:40 71 98 03/01/25 02:35 77 97 03/01/25 02:30 78 97 03/01/25 02:25 79 97 03/01/25 02:20 77 97 03/01/25 02:15 73 97 03/01/25 02:10 72 98 03/01/25 02:05 70 98 03/01/25 02:03 93 H 113/64 03/01/25 02:00 75 98 03/01/25 01:55 89 97 03/01/25 01:50 74 98 03/01/25 01:45 77 98 03/01/25 01:40 95 H 98 03/01/25 01:35 76 98 03/01/25 01:30 80 98 03/01/25 01:25 80 98 03/01/25 01:20 76 98 03/01/25 01:15 78 98 03/01/25 01:10 80 100 03/01/25 01:05 16 03/01/25 01:05 79 99 03/01/25 01:03 93 H 109/57 L 03/01/25 01:00 75 98 03/01/25 00:55 81 98 03/01/25 00:50 79 98 03/01/25 00:45 78 98 03/01/25 00:40 79 98 03/01/25 00:35 77 98 03/01/25 00:30 86 100 03/01/25 00:25 80 98 03/01/25 00:20 82 98 03/01/25 00:15 79 98 03/01/25 00:10 78 97 03/01/25 00:05 16 03/01/25 00:05 79 97 03/01/25 00:03 86 97/59 L 03/01/25 00:00 83 97 02/28/25 23:55 99 02/28/25 23:55 89 02/28/25 23:50 97 02/28/25 23:50 79 02/28/25 23:45 97 02/28/25 23:45 81 02/28/25 23:40 97 02/28/25 23:40 74 02/28/25 23:35 97 02/28/25 23:35 76 02/28/25 23:30 96 02/28/25 23:30 90 02/28/25 23:25 99 02/28/25 23:25 85 02/28/25 23:20 98 02/28/25 23:20 82 02/28/25 23:15 98 02/28/25 23:15 83 02/28/25 23:10 98 02/28/25 23:10 88 02/28/25 23:05 100 02/28/25 23:05 84 02/28/25 23:03 18 02/28/25 23:03 36.9 C 18 02/28/25 23:03 77 02/28/25 23:03 129/80 02/28/25 23:00 18 02/28/25 23:00 100 02/28/25 23:00 85 02/28/25 22:55 98 02/28/25 22:55 76 02/28/25 22:50 100 02/28/25 22:50 80 02/28/25 22:49 77 02/28/25 22:49 130/80 02/28/25 22:45 97 02/28/25 22:45 77 02/28/25 22:40 99 02/28/25 22:40 78 02/28/25 22:37 81 02/28/25 22:37 119/79 02/28/25 22:35 100 02/28/25 22:35 91 H 02/28/25 22:30 18 02/28/25 22:30 98 02/28/25 22:30 89 02/28/25 22:25 99 02/28/25 22:25 101 H 02/28/25 22:20 98 02/28/25 22:20 87 02/28/25 22:19 88 02/28/25 22:19 151/100 H 02/28/25 22:15 99 02/28/25 22:15 94 H 02/28/25 22:10 99 02/28/25 22:10 84 02/28/25 22:05 100 02/28/25 22:05 76 02/28/25 22:04 79 02/28/25 22:04 127/80 02/28/25 22:00 100 02/28/25 22:00 85 02/28/25 21:55 100 02/28/25 21:55 101 H 02/28/25 21:50 99 02/28/25 21:50 80 02/28/25 21:50 77 02/28/25 21:50 118/73 02/28/25 21:45 98 02/28/25 21:45 71 02/28/25 21:40 98 02/28/25 21:40 76 02/28/25 21:35 100 02/28/25 21:35 81 02/28/25 21:30 98 02/28/25 21:30 78 02/28/25 21:25 98 02/28/25 21:25 97 H 02/28/25 21:21 81 02/28/25 21:21 136/81 02/28/25 21:20 18 02/28/25 21:20 100 02/28/25 21:20 82 02/28/25 21:19 36.6 C 02/28/25 21:19 80 02/28/25 21:19 152/106 H 02/28/25 21:15 99 02/28/25 21:15 85 02/28/25 21:10 98 02/28/25 21:10 70 02/28/25 21:05 99 02/28/25 21:05 72 02/28/25 21:04 75 02/28/25 21:04 162/102 H 02/28/25 21:00 99 02/28/25 21:00 78 02/28/25 20:55 99 02/28/25 20:55 76 02/28/25 20:50 99 02/28/25 20:50 107 H 02/28/25 20:50 96 H 02/28/25 20:50 148/99 H 02/28/25 20:45 99 02/28/25 20:45 86 02/28/25 20:40 20 02/28/25 20:40 99 02/28/25 20:40 84 02/28/25 20:35 98 02/28/25 20:35 75 02/28/25 20:34 75 02/28/25 20:34 136/95 0726/25 20:30 98 02/28/25 20:30 81 02/28/25 20:25 99 02/28/25 20:25 83 02/28/25 20:22 88 02/28/25 20:22 139/100 02/28/25 20:20 98 02/28/25 20:20 84 02/28/25 20:15 100 02/28/25 20:15 101 H 02/28/25 20:10 100 02/28/25 20:10 90
[2025-03-01] MEDS ORDERED: Nursing to Pharmacy Communication SCH ×2 (08:15→17:30)
[2025-03-01] MEDS: FERROUS SULFATE 325 MG TAB PO SCH (08:18)
[2025-03-01] MEDS: PRENATAL VITAMIN 1 TAB PO SCH (08:18)
[2025-03-01] MEDS: CALCIUM GLUCONATE 1,000 MG/60 ML BAG IV SCH (08:25)
[2025-03-01] MEDS: NIFEdipine EXTENDED REL 30 MG TABCR PO SCH (08:29)
[2025-03-01] MEDS: IRON SUCROSE 300 MG in SODIUM CHLORIDE 0.9% 250 ML IV ONE (15:19)
[2025-03-02 06:10] LABS: Hematocrit (blood only) 28.5 % (37.0-47.0); Hemoglobin 9.8 g/dl (12.0-16.0); Immature Granulocytes # (auto) 0.03 K/uL (0.01-0.20); Immature Granulocytes % (auto) 0.5 %; Mean Corpuscular Hemoglobin 32.5 pg (25.0-34.0); Mean Corpuscular Volume 94.4 fL (80.0-100.0); Platelet Count 185 K/uL (130-400); RDW Standard Deviation 43.4 fL (36.4-46.3); Red Blood Count 3.02 M/uL (4.20-5.40); White Blood Count 6.66 K/ul (4.8-10.8)
[2025-03-02 06:27] LABS: Alanine Aminotransferase 410.0 U/L (7-52); Albumin Globulin Ratio 1.5 (0.9-2); Alkaline Phosphatase 152.0 U/L (34-104); Anion Gap 5.0 (3-11); Bilirubin,Total 0.5 mg/dl (0.2-1.0); Blood Urea Nitrogen 7.0 mg/dl (6-23); Calcium 8.4 mg/dl (8.6-10.3); Carbon Dioxide 26.0 mmol/L (21-32); Chloride 107.0 mmol/L (98-107); Creatinine Clr Calc Pharmacy 170.4 ml/min; Globulin 2.1 gm/dl (2.5-4.0); Glucose 73.0 mg/dl (70-99(Fasting)); Potassium 3.9 mmol/L (3.5-5.1); Sodium 138.0 mmol/L (136-145); Total Protein 5.3 gm/dl (6.0-8.3)
[2025-03-02 07:09] VITALS: BP 123/82; RESP 18; TEMP 97.5; O2SAT 97
[2025-03-02] MEDS ORDERED: CALCIUM GLUCONATE 1,000 MG/60 ML BAG IV STA (08:21)
--- NOTE | 2025-03-02 10:44 | Obstetrical Progress Note ---
Date of Service March 02, 2025 Assessment & Plan (1) Pre-eclampsia during in third trimester, antepartum: discharged home on Labetalol/Procardia (2) Elevated liver enzymes: (3) Pre-eclampsia in period: Subjective Ambulation: ambulating normally Voiding: no voiding problems Passing Gas:: Yes Diet Tolerance:: regular diet Lochia:: Small Feeding Type:: breast feeding Current Pain Level(1-10): 0 doing well Physical Exam Constitutional WD/WN, vitals as above Gastrointestinal (Abdomen) Inspection/Auscultation: abdomen normal to inspection abdomen soft and non-tender. uterus firm below U Musculoskeletal Extremities: extremities normal to inspection Skin no rashes, warm and dry Neurologic patellar DTR's 2+ bilat, sensation intact Psychiatric A+Ox3, euthymic affect Results & Data Vital Signs (Past 12 Hours) Vital Signs Temp Pulse Pulse Resp BP Pulse Ox O2 Del Method 03/02/25 07:08 36.4 C L 79 18 123/82 97 Room Air 03/02/25 05:45 77 128/86 Laboratory Results Laboratory Results - last 48 hr 02/27/25 02/28/25 03/01/25 22:22 20:17 06:19 WBC 11.52 H 9.91 RBC 3.42 L 3.14 L Hgb 10.8 L 9.9 L Hct 30.8 L 28.4 L MCV 90.1 90.4 MCH 31.6 31.5 MCHC 35.1 34.9 RDW Std Deviation 40.5 40.3 RDW Coeff of Tammie 12.4 12.4 Plt Count 177 153 MPV 11.0 11.5 Immature Gran % (Auto) 0.3 Neut % (Auto) 82.7 Lymph % (Auto) 11.1 [place] % (Auto) 5.3 Eos % (Auto) 0.3 Baso % (Auto) 0.3 Neut # (Auto) 9.51 H Lymph # (Auto) 1.28 [place] # (Auto) 0.61 H Eos # (Auto) 0.04 Baso # (Auto) 0.04 Immature Gran # (Auto) 0.04 PT 10.1 INR 0.9 APTT 29 PTT Ratio 1.1 Fibrinogen 449 H Sodium 131 L 131 L Potassium 3.6 4.0 Chloride 104 103 Carbon Dioxide 19 L 24 Anion Gap 8 4 BUN 4 L 3 L Creatinine 0.43 L 0.44 L Est Cr Clr Drug Dosing 198.1 193.6 eGFR 140.07 139.30 BUN/Creatinine Ratio 9.3 L 6.8 L Glucose 125 H 86 Calcium 7.0 L 6.9 L Magnesium (Sulf Ther) 3.9 L Total Bilirubin 0.9 0.9 AST 232 H 207 H ALT 460 H 412 H Alkaline Phosphatase 169 H 156 H Total Protein 5.3 L 4.8 L Albumin 2.9 L 2.9 L Globulin 2.4 L 1.9 L Albumin/Globulin Ratio 1.2 1.5 Crossmatch See Detail 03/02/25 05:36 WBC 6.66 RBC 3.02 L Hgb 9.8 L Hct 28.5 L MCV 94.4 MCH 32.5 MCHC 34.4 RDW Std Deviation 43.4 RDW Coeff of Tammie 12.6 Plt Count 185 MPV 11.3 Immature Gran % (Auto) 0.5 Neut % (Auto) 65.5 Lymph % (Auto) 25.5 [place] % (Auto) 5.6 Eos % (Auto) 2.1 Baso % (Auto) 0.8 Neut # (Auto) 4.37 Lymph # (Auto) 1.70 [place] # (Auto) 0.37 Eos # (Auto) 0.14 Baso # (Auto) 0.05 Immature Gran # (Auto) 0.03 PT INR APTT PTT Ratio Fibrinogen Sodium 138 Potassium 3.9 Chloride 107 Carbon Dioxide 26 Anion Gap 5 BUN 7 Creatinine 0.50 L Est Cr Clr Drug Dosing 170.4 eGFR 135.07 BUN/Creatinine Ratio 14.0 Glucose 73 Calcium 8.4 L Magnesium (Sulf Ther) Total Bilirubin 0.5 AST 173 H ALT 410 H Alkaline Phosphatase 152 H Total Protein 5.3 L Albumin 3.2 L Globulin 2.1 L Albumin/Globulin Ratio 1.5 Crossmatch
[2025-03-02 12:22] VITALS: PULSE 77
[2025-03-03 10:16] LABS: Marijuana Quant, GCMS Urine 213 ng/mL (<5)
== END 2025-03-02 14:13 | disposition home or self-care (01) | DRG 768 ==
LOC: OPB 18:43 → 4S1 18:45 → 4E2 03-01 17:15